=== PATIENT | female | born 1980 | race Asian ===

== ENCOUNTER 2017-10-08 14:20 | Emergency (ER) | payer MEDICAID ==
[~2017-10-08] VITALS: Ht 160 cm; Wt 49.9 kg
[2017-10-08 14:30] VITALS: BP_SYST 152
[2017-10-08 15:37] LABS: BASOPHILS # (AUTO) 0.1 K/uL (0.0-0.2); BASOPHILS % (AUTO) 0.6 % (0.0-2.0); EOSINOPHILS # (AUTO) 0.1 K/uL (0.0-0.4); EOSINOPHILS % (AUTO) 1.3 % (0.0-4.0); HEMATOCRIT 38.1 % (36-48); HEMOGLOBIN 12.8 g/dL (12.0-16.0); LYMPHOCYTES # (AUTO) 2.9 K/uL (1.0-5.5); LYMPHOCYTES % (AUTO) 33.2 % (20.5-51.5); MEAN CORPUSCULAR HEMOGLOBIN 32 pg (27-31); MEAN CORPUSCULAR HGB CONC 34 % (32-36); MEAN CORPUSCULAR VOLUME 94 fL (79.0-98.0); MONOCYTES # (AUTO) 0.5 K/uL (0.0-1.0); MONOCYTES % (AUTO) 5.9 % (1.7-9.3); NEUTROPHILS # (AUTO) 5.2 K/uL (1.8-7.7); PLATELET COUNT (AUTO) 315 K/uL (130-430); RED BLOOD CELL COUNT(AUTO) 4.06 MIL/uL (4.2-6.2); RED CELL DISTRIBUTION WIDTH 12.5 % (9.0-15.0); WHITE BLOOD COUNT (AUTO) 8.8 K/uL (4.8-10.8)
[2017-10-08 16:34] VITALS: BP_SYST 109
[2017-10-09 05:17] LABS: BILIRUBIN,URINE NEGATIVE (NEGATIVE); CLARITY/URINE CLEAR (CLEAR); COLOR,URINE YELLOW (YELLOW); GLUCOSE,URINE NEGATIVE (NEGATIVE); KETONES,URINE NEGATIVE (NEGATIVE); LEUKOCYTE ESTERASE ,URINE NEGATIVE (NEGATIVE); NITRITE, URINE NEGATIVE (NEGATIVE); PH,URINE 5.5 (5.0-8.0); PROTEIN URINE NEGATIVE (NEGATIVE); UROBILINOGEN,URINE 0.2 (0.2-1.0)
[2017-10-09 05:18] LABS: BLOOD, URINE TRACE (NEGATIVE)
[2017-10-09 05:28] LABS: BACTERIA,URINE FEW /HPF (None Seen); WBC,URINE 0-3 /HPF (0-3)
[2017-10-09 05:29] LABS: HYALINE CASTS, URINE 0-10 /LPF (None Seen)
== END 2017-10-08 16:34 | disposition home or self-care (01) ==
LOC: SED 14:20
DX: O03.9 Complete or unspecified spontaneous abortion without complication (principal); Z88.6 Allergy status to analgesic agent
CPT/HCPCS: 36415; 76856-TC; 81000-TC; 84702-TC; 85025; 86900; 86901; 99285

== ENCOUNTER 2018-11-26 14:51 | Inpatient (IN) | payer MEDICAID ==
[~2018-11-26] VITALS: Ht 160 cm; Wt 75.3 kg
[~2018-11-26 14:51] MED LIST: LR 1,000 ML IV.SOLN IV ONE; MORPHINE SULFATE 10MG/10ML PF AMP EP ONE; ONDANSETRON HCL 4 MG/2 ML VIAL IVP ONE; OXYTOCIN/0.9 % SODIUM CHLORIDE 20 UNITS/1,000 ML BAG IV ONE; WATER FOR IRRIGATION,STERILE 1,000 ML IRRIG.SOLN IR ONE
[2018-11-26] MEDS ORDERED: MISOPROSTOL 100 MCG TABLET (CYTOTEC) PO PRN (16:00)
[2018-11-26] MEDS ORDERED: NALBUPHINE HCL 10 MG/ML AMP IVP PRN (16:00)
[2018-11-26] MEDS ORDERED: TERBUTALINE SULFATE 1 MG/ML VIAL SUBCUT ONE (16:00)
[2018-11-26 16:35] LABS: BASOPHILS % (AUTO) 0.2 % (0.0-2.0); EOSINOPHILS % (AUTO) 0.4 % (0.0-4.0); HEMATOCRIT 35.4 % (36-48); HEMOGLOBIN 11.9 g/dL (12.0-16.0); LYMPHOCYTES # (AUTO) 2.8 K/uL (1.0-5.5); LYMPHOCYTES % (AUTO) 30.1 % (20.5-51.5); MEAN CORPUSCULAR HEMOGLOBIN 32 pg (27-31); MEAN CORPUSCULAR HGB CONC 34 % (32-36); MEAN CORPUSCULAR VOLUME 94 fL (79.0-98.0); MONOCYTES # (AUTO) 0.7 K/uL (0.0-1.0); MONOCYTES % (AUTO) 7.8 % (1.7-9.3); NEUTROPHILS # (AUTO) 5.7 K/uL (1.8-7.7); NEUTROPHILS % (AUTO) 61.5 % (40.0-70.0); PLATELET COUNT (AUTO) 221 K/uL (130-430); RED BLOOD CELL COUNT(AUTO) 3.76 MIL/uL (4.2-6.2); RED CELL DISTRIBUTION WIDTH 13.8 % (9.0-15.0); WHITE BLOOD COUNT (AUTO) 9.2 K/uL (4.8-10.8)
[2018-11-26] MEDS: LR 1,000 ML IV SCH (17:15)
[2018-11-26] MEDS ORDERED: OXYTOCIN/0.9 % SODIUM CHLORIDE 1,000 ML IV SCH (17:15)
[2018-11-26 18:56] VITALS: BP_SYST 131
[2018-11-27] MEDS: LR 1,000 ML IV SCH ×4 (00:22→23:07)
[2018-11-27] MEDS ORDERED: ROPIVACAINE HCL/PF 0.2% 200 ML ONE (10:45)
[2018-11-27] MEDS ORDERED: fentaNYL CITRATE/PF 100 MCG/2 ML AMP ONE (10:45)
[2018-11-27] MEDS ORDERED: LR 500 ML IV ONE (12:23)
[2018-11-27] MEDS ORDERED: ePHEDrine sulfate 50 MG/ML VIAL IVP PRN (12:30)
[2018-11-27] MEDS ORDERED: FENT2mCg/mL-ROPIVA0.2%/NS EPID 200 ML EP SCH (12:30)
[2018-11-27] MEDS ORDERED: fentaNYL CITRATE/PF 100 MCG/2 ML AMP EP ONE (12:30)
[2018-11-27] MEDS ORDERED: CEFAZOLIN 2 GM IVPB PREMIX 50 ML IV ONE (14:00)
[2018-11-27] MEDS ORDERED: OXYTOCIN/0.9 % SODIUM CHLORIDE 1,000 ML IV ONE (15:07)
[2018-11-27] MEDS ORDERED: ANUSOL 1 EA SUPP.RECT (PREPARATION H) RC PRN (15:15)
[2018-11-27] MEDS ORDERED: BISACODYL 10 MG/SUPPOSITORY RC PRN (15:15)
[2018-11-27] MEDS ORDERED: OXYCODONE/ACETAMINOPHEN 5-325 TABLET PO PRN (15:15)
[2018-11-27] MEDS ORDERED: LANOLIN 7 GM OINT. TP PRN (15:15)
[2018-11-27] MEDS ORDERED: DIPH-TET-PERTUS Vaccine 0.5 ML VIAL (ADACEL) I.M. PRN (15:15)
[2018-11-27] MEDS ORDERED: ACETAMINOPHEN 325 MG TABLET PO PRN (15:15)
[2018-11-27] MEDS ORDERED: SENNOSIDES/DOCUSATE SODIUM 1 TAB TABLET(SENOKOT-S) PO PRN (15:15)
[2018-11-27] MEDS ORDERED: MEPERIDINE HCL/PF 50 MG/ML AMP IVP ONE (16:00)
[2018-11-27] MEDS ORDERED: MEPERIDINE HCL/PF 50 MG/ML AMP ONE (16:04)
[2018-11-27 16:34] VITALS: BP_SYST 116
[2018-11-27] MEDS ORDERED: OXYTOCIN 10 UNIT/ML VIAL ONE (16:35)
[2018-11-27] MEDS ORDERED: MORPHINE SULFATE 10 MG/ML VIAL IM ONE (17:00)
[2018-11-27] MEDS: CEFAZOLIN 1 GM IVPB PREMIX 50 ML IV SCH (21:00)
[2018-11-28] MEDS: OXYCODONE/ACETAMINOPHEN 5-325 TABLET PO PRN ×3 (00:54→19:36)
[2018-11-28] MEDS: CEFAZOLIN 1 GM IVPB PREMIX 50 ML IV SCH ×2 (03:00→08:47)
[2018-11-28 06:26] LABS: BASOPHILS % (AUTO) 0.2 % (0.0-2.0); EOSINOPHILS % (AUTO) 0.1 % (0.0-4.0); HEMATOCRIT 29.9 % (36-48); HEMOGLOBIN 10.1 g/dL (12.0-16.0); LYMPHOCYTES # (AUTO) 2.9 K/uL (1.0-5.5); LYMPHOCYTES % (AUTO) 20.5 % (20.5-51.5); MEAN CORPUSCULAR HEMOGLOBIN 32 pg (27-31); MEAN CORPUSCULAR HGB CONC 34 % (32-36); MEAN CORPUSCULAR VOLUME 95 fL (79.0-98.0); MONOCYTES # (AUTO) 0.9 K/uL (0.0-1.0); MONOCYTES % (AUTO) 6.4 % (1.7-9.3); NEUTROPHILS # (AUTO) 10.4 K/uL (1.8-7.7); NEUTROPHILS % (AUTO) 72.8 % (40.0-70.0); PLATELET COUNT (AUTO) 180 K/uL (130-430); RED BLOOD CELL COUNT(AUTO) 3.17 MIL/uL (4.2-6.2); RED CELL DISTRIBUTION WIDTH 13.6 % (9.0-15.0); WHITE BLOOD COUNT (AUTO) 14.2 K/uL (4.8-10.8)
[2018-11-28] MEDS ORDERED: ROPIVACAINE 40 MG/20 ML AMP EP ONE (07:42)
[2018-11-28] MEDS: DOCUSATE SODIUM 100 MG CAPSULE PO PRN (19:35)
[2018-11-29] MEDS: OXYCODONE/ACETAMINOPHEN 5-325 TABLET PO PRN ×5 (00:08→22:40)
[2018-11-29] MEDS: SIMETHICONE 80 MG TAB.CHEW PO PRN ×2 (00:09→11:52)
[2018-11-29] MEDS: DOCUSATE SODIUM 100 MG CAPSULE PO PRN (11:52)
[2018-11-30] MEDS: OXYCODONE/ACETAMINOPHEN 5-325 TABLET PO PRN ×3 (03:23→16:59)
[2018-11-30] MEDS ORDERED: MEASLES,MUMPS&RUBELLA VACC/PF 12500 UNIT/0.5 ML VIAL SUBQ PRN (14:30)
== END 2018-11-30 17:30 | disposition home or self-care (01) | DRG 540 ==
LOC: SPU 14:51 → OBSVTOIN 15:45 → SPU 11-27 13:50
PROVIDERS: ADMIT Obstetrics & Gynecology; ATTEND Obstetrics & Gynecology
PROC: 10D00Z1 Extraction of Products of Conception, Low, Open Approach (ICD-10-PCS; principal; 2018-11-27 14:00)
DX: O41.03X0 Oligohydramnios, third trimester, not applicable or unspecified (principal); R71.0 Precipitous drop in hematocrit; O62.2 Other uterine inertia; O76 Abnormality in fetal heart rate and rhythm complicating labor and delivery; Z37.0 Single live birth; Z3A.39 39 weeks gestation of pregnancy
CPT/HCPCS: 36415; 81002-TC; 85025; 86592; 86886; 86900; 86901; 94760; G0378; J0690; J2175; J2270; J2274; J2300; J2405; J2590; J2795; J3010; J7120

== ENCOUNTER 2019-03-24 10:54 | Day surgery (SDC) | payer MEDICAID ==
[~2019-03-24] VITALS: Ht 160 cm; Wt 69.4 kg
[2019-03-24 12:00] LABS: BASOPHILS % (AUTO) 0.4 % (0.0-2.0); EOSINOPHILS # (AUTO) 0.1 K/uL (0.0-0.4); EOSINOPHILS % (AUTO) 1.4 % (0.0-4.0); HEMATOCRIT 35.6 % (36-48); LYMPHOCYTES # (AUTO) 2.6 K/uL (1.0-5.5); LYMPHOCYTES % (AUTO) 48.1 % (20.5-51.5); MEAN CORPUSCULAR HEMOGLOBIN 30 pg (27-31); MEAN CORPUSCULAR HGB CONC 34 % (32-36); MEAN CORPUSCULAR VOLUME 89 fL (79.0-98.0); MONOCYTES # (AUTO) 0.4 K/uL (0.0-1.0); MONOCYTES % (AUTO) 8.2 % (1.7-9.3); NEUTROPHILS # (AUTO) 2.3 K/uL (1.8-7.7); NEUTROPHILS % (AUTO) 41.9 % (40.0-70.0); PLATELET COUNT (AUTO) 279 K/uL (130-430); RED BLOOD CELL COUNT(AUTO) 3.99 MIL/uL (4.2-6.2); RED CELL DISTRIBUTION WIDTH 13.8 % (9.0-15.0); WHITE BLOOD COUNT (AUTO) 5.4 K/uL (4.8-10.8)
[2019-03-24 12:23] LABS: INR 1.1 (0.8-1.2); PROTHROMBIN TIME 10.9 SECS (9.5-12.5)
[2019-03-24] MEDS ORDERED: ONDANSETRON HCL 4 MG/2 ML VIAL IVP PRN (14:15)
[2019-03-24] MEDS ORDERED: METOCLOPRAMIDE HCL 10 MG/2 ML VIAL IVP PRN (14:15)
[2019-03-24] MEDS: MORPHINE 4 MG/ML INJ. SYRINGE IVP PRN ×2 (14:16→14:33)
[2019-03-24] MEDS ORDERED: MORPHINE 4 MG/ML INJ. SYRINGE ONE (14:29)
[2019-03-24] MEDS ORDERED: HYDROcodone/ACETAMIN 5-325 MG TAB (NORCO/ VICODIN) PO ONE (15:30)
[2019-03-24] MEDS ORDERED: HYDROcodone/ACETAMIN 5-325 MG TAB (NORCO/ VICODIN) ONE (15:36)
[2019-03-24 15:51] VITALS: BP_SYST 101
== END 2019-03-24 18:00 | disposition home or self-care (01) ==
LOC: SDS 10:54 → SMU 10:56 → SDS 18:00
PROVIDERS: ATTEND Obstetrics & Gynecology
DX: D06.7 Carcinoma in situ of other parts of cervix (principal); N72 Inflammatory disease of cervix uteri; Z88.8 Allergy status to other drugs, medicaments and biological substances; Z79.01 Long term (current) use of anticoagulants
CPT/HCPCS: 36415; 57520; 84703; 85025; 85610; 85730; 88305; J2270